=== PATIENT | male | born 1970 | race African-American/Black ===

== ENCOUNTER 2016-11-14 15:06 | Emergency (ER) | payer MEDICAID, OTHER ==
[~2016-11-14] VITALS: Ht 175.3 cm; Wt 100.0 kg
[~2016-11-14 15:06] MED LIST: HYDR-3498 PO; IBUP800T25 PO
[2016-11-14 15:10] VITALS: Ht 175.3 cm; Wt 100.0 kg
[2016-11-14] MEDS ORDERED: DIPHENHYDRAMINE 50 MG INJ IV STA (15:31)
[2016-11-14] MEDS ORDERED: METOCLOPRAMIDE 10 MG INJ IV STA (15:31)
[2016-11-14] MEDS ORDERED: SOD CHLORIDE 0.9% 1,000 ML IV STA (15:31)
[2016-11-14 15:50] LABS: ADD SCAN DIFF NO
[2016-11-14 15:52] LABS: BASOPHILS % 0.3 % (0.0-2.0); EOSINOPHILS # 0.1 10^3/ul (0.0-0.5); EOSINOPHILS % 1.1 % (0.0-7.0); HEMATOCRIT 39.7 % (42.0-52.0); HEMOGLOBIN 13.9 g/dl (14.0-18.0); LYMPHOCYTES # 2.4 10^3/ul (0.8-2.9); LYMPHOCYTES % 32.9 % (15.0-51.0); MEAN CORPUSCULAR HEMOGLOBIN 30.3 pg (29.0-33.0); MEAN CORPUSCULAR VOLUME 86.7 fl (82.0-101.0); MEAN PLATELET VOLUME 9.5 fl (7.4-10.4); MONOCYTE # 0.6 10^3/ul (0.3-0.9); MONOCYTES % 8.6 % (0.0-11.0); NEUTROPHIL # 4.2 10^3/ul (1.6-7.5); NEUTROPHILS % 56.8 % (39.0-77.0); PLATELET COUNT 258 10^3/UL (140-415); RED BLOOD COUNT 4.58 10^6/ul (4.70-6.10); RED CELL DISTRIBUTION WIDTH 12.8 % (11.5-14.5); WHITE BLOOD COUNT 7.3 10^3/ul (4.8-10.8)
[2016-11-14 16:01] LABS: INR 0.91; PROTIME 12.2 Sec (12.2-14.2)
[2016-11-14 16:02] LABS: PARTIAL THROMBOPLASTIN TIME 27.5 Sec (25.0-35.0)
[2016-11-14 16:04] LABS: POTASSIUM 3.8 mmol/L (3.5-5.1)
[2016-11-14] MEDS ORDERED: LISI2.5T59 PO (16:05)
[2016-11-14 16:07] LABS: CREATININE 1.29 mg/dl (0.61-1.24)
[2016-11-14 16:08] LABS: CALCIUM 8.6 mg/dl (8.4-10.2)
--- NOTE | 2016-11-14 16:30 | RADRPT ---
PROCEDURE: CT Head without. CLINICAL INDICATION: Migraine headache in the frontal / parietal region. TECHNIQUE: The study was performed utilizing a multi-slice, multidetector CT scanner. Direct spira l 1 mm axial sections were obtained through the head without the use of intravenous contrast materia l. 1 or more of the following dose reduction techniques were utilized: Automated exposure control, adjustment of the mA and/or kV according to patient's size, iterative reconstruction technique. Co radha and sagittal reformations were obtained. The images were reviewed on a PACS workstation. RADIATION DOSE: CTDIvol: 44.7 mGyDLP: 720.2 mGy-cm COMPARISON: No prior studies are available for comparison. FINDINGS: There is no intracranial hemorrhage, extra-axial fluid collection, mass lesion, midline shift or hyd rocephalus. The ventricles, sulci and cisterns are within normal limits. The white matter is unrem arkable. The davis-white matter differentiation is preserved. The basal cisterns are patent. The m idline structures are intact. The orbits, calvarium and extracranial soft tissues are normal in ludmila earance. The visualized paranasal sinuses, mastoid air cells and middle ear cavities are normally ae rated. IMPRESSION: 1. No acute intracranial abnormality. No intracranial hemorrhage, extra-axial fluid collection, ma ss lesion or hydrocephalous. RPTAT: HGAS .Victor Hugo Saravia MD, MD Date Time Electronically viewed and signed by .Victor Hugo Saravia MD, MD on 11/14/2016 16:29 .S/
--- NOTE | 2016-11-14 16:37 | ERD ---
ER Documentation Chief Complaint Date/Time DATE: 11/14/16 TIME: 16:36 Chief Complaint sinus gregg x 3 days, off bp meds for few days HPI This is a 46-year-old male who presents to the emergency room for evaluation of a headache. The patient states that he does have high blood pressure and is not taking his blood pressure medication in the past 3 days. The patient states that he is not taking his medication because he has been busy. He also states that he has had previous sinus infections which have progressed and needed drainage by a specialist when he was 18 years old. The patient denies any fevers or chills and came to the ER for evaluation. ROS All systems reviewed and are negative except as per history of present illness. Medications Home Meds Reported Medications Lisinopril* (Lisinopril*) 2.5 Mg Tablet, 2.5 MG PO DAILY, #30 TAB 11/14/16 Discontinued Scripts Hydrocodone Bit-Acetaminophen* (Siler*) 5-325 Mg Tab, 1 TAB PO Q6 Y for PAIN, # 20 TAB Prov:ARELI MERCADO MD 04/08/15 Ibuprofen* (Motrin*) 800 Mg Tab, 800 MG PO Q6, #20 TAB Prov:ARELI MERCADO MD 04/08/15 Allergies Allergies: Coded Allergies: No Known Allergy (Unverified , 11/14/16) PMhx/Soc History of Surgery: Yes (Eye surgery) Anesthesia Reaction: No Hx Neurological Disorder: No Hx Respiratory Disorders: No Hx Cardiac Disorders: Yes (htn) Hx Psychiatric Problems: No Hx Miscellaneous Medical Probl: Yes (gastritis) Hx Alcohol Use: No Hx Substance Use: No Hx Tobacco Use: No Smoking Status: Never smoker Physical Exam Vitals Vital Signs Date Time Temp Pulse Resp B/P Pulse Ox O2 Delivery O2 Flow Rate FiO2 11/14/16 15:10 98.1 83 20 180/122 99 Physical Exam INITIAL VITAL SIGNS: Reviewed by me GENERAL: The patient is well developed and appropriate for usual state of health in no apparent distress HEENT: Pupils equal, round, and reactive to light. EOMI. There is no scleral icterus. NECK: C-spine is soft and supple, there is no meningismus. There is no cervical lymphadenopathy. LUNGS: Clear to auscultation bilaterally. There are no rales, wheezes or rhonchi. HEART: Regular rate and rhythm, no murmurs, clicks, rubs or gallops. ABDOMEN: Soft, non-tender, non-distended. There are bowel sounds in all four quadrants. No rebound or guarding. EXTREMITIES: There is no peripheral cyanosis or edema. No focal swelling or erythema. NEUROLOGICAL: The patient moves all four extremities with 5/5 strength. Cranial nerves II - XII are intact. Normal gait. Alert and oriented SKIN: There is no apparent rash or petechiae. HEME/LYMPHATIC: There is no evidence of excessive bruising or lymphedema. PSYCHIATRIC: The patient does not appear anxious or depressed. Result Diagram: 11/14/16 1545 11/14/16 1545 Results 24 hrs Laboratory Tests Test 11/14/16 15:45 White Blood Count 7.310^3/ul Red Blood Count 4.5810^6/ul Hemoglobin 13.9g/dl Hematocrit 39.7% Mean Corpuscular Volume 86.7fl Mean Corpuscular Hemoglobin 30.3pg Mean Corpuscular Hemoglobin Concent 35.0g/dl Red Cell Distribution Width 12.8% Platelet Count 82731^3/UL Mean Platelet Volume 9.5fl Neutrophils % 56.8% Lymphocytes % 32.9% Monocytes % 8.6% Eosinophils % 1.1% Basophils % 0.3% Nucleated Red Blood Cells % 0.0/100WBC Neutrophils # 4.210^3/ul Lymphocytes # 2.410^3/ul Monocytes # 0.610^3/ul Eosinophils # 0.110^3/ul Basophils # 0.010^3/ul Nucleated Red Blood Cells # 0.010^3/ul Prothrombin Time 12.2Sec Prothrombin Time Ratio 1.0 INR International Normalized Ratio 0.91 Activated Partial Thromboplast Time 27.5Sec Sodium Level 134mmol/L Potassium Level 3.8mmol/L Chloride Level 94mmol/L Carbon Dioxide Level 35mmol/L Anion Gap 9 Blood Urea Nitrogen 13mg/dl Creatinine 1.29mg/dl Glucose Level 92mg/dl Calcium Level 8.6mg/dl Current Medications Medications (Trade) Dose Ordered Sig/Landy Route PRN Reason Start Time Stop Time Status Last Admin Dose Admin Sodium Chloride (NS) 1,000 ml @ 1,000 mls/hr Q1H STAT IV 11/14/16 15:31 11/14/16 16:30 DC 11/14/16 15:47 Metoclopramide HCl (Reglan) 10 mg ONCE STAT IV 11/14/16 15:31 11/14/16 15:32 DC 11/14/16 15:47 Diphenhydramine HCl (Benadryl) 25 mg ONCE STAT IV 11/14/16 15:31 11/14/16 15:32 DC 11/14/16 15:47 Amoxicillin/ Clavulanate Potassium (Augmentin) 875 mg ONCE ONCE PO 11/14/16 17:00 11/14/16 17:01 DC 11/14/16 16:57 Hydralazine HCl (Apresoline) 10 mg ONCE ONCE IV 11/14/16 17:00 11/14/16 17:01 DC 11/14/16 16:53 Nicardipine HCl (Cardene) 30 mg ONCE ONCE PO 11/14/16 17:30 11/14/16 17:31 Labetalol HCl (Labetalol) 10 mg ONCE ONCE IV 11/14/16 17:30 11/14/16 17:31 Procedures/MDM CT head without: 1. No acute intracranial abnormality. No intracranial hemorrhage, extra-axial fluid collection, mass lesion or hydrocephalous. This 46-year-old male presents to the emergency room for evaluation of a headache. When I evaluated this patient he was hypertensive. The patient does have a history of complicated sinus infection which required ENT drainage. The patient had lab work drawn which does not show any leukocytosis. The patient is afebrile, alert oriented to person place and time. CT the head does not reveal any abscess formation or bleeding. The patient was given hydralazine and labetalol. His blood pressure is 148/99. He was given p.o. Augmentin in the emergency room. He was also given treatment for migraine cocktail and was given Reglan, and Benadryl. The patient states his headache has improved. He will be discharged home at this time with a prescription for Augmentin, and Siler for headache. I advised him that he needs to follow-up with his primary care physician in 3 days or return to the ER immediately if his pain worsens. The patient verbalized understanding is okay with her plan of care. Departure Diagnosis: Primary Impression: Headache Additional Impressions: Normocytic anemia Renal insufficiency Uncontrolled hypertension Condition: Stable BORHANI,KOROSH DO Nov 14, 2016 16:37
[2016-11-14] MEDS ORDERED: hydrALAzine 20 MG INJ IV ONE (17:00)
[2016-11-14] MEDS ORDERED: AMOXICILLIN/CLAV 875 MG TAB PO ONE (17:00)
[2016-11-14] MEDS ORDERED: LABETALOL HCL 20MG INJ IV ONE (17:30)
[2016-11-14] MEDS ORDERED: NICARDipine HCL 30 MG CAPSULE PO ONE (17:30)
[2016-11-14 17:33] VITALS: BP 148/89; PULSE 80; RESP 18; TEMP 98.9
[2016-11-14] MEDS ORDERED: AMOX1TAB10 PO (17:34)
[2016-11-14] MEDS ORDERED: HYDR-906 PO (17:34)
== END 2016-11-14 17:45 | disposition home or self-care (01) ==
LOC: E/R 15:06
DX: R51 Headache (principal); D64.9 Anemia, unspecified; N28.9 Disorder of kidney and ureter, unspecified; I10 Essential (primary) hypertension; R07.9 Chest pain, unspecified
CPT/HCPCS: 36415; 70450; 80048; 85025; 85610; 85730; 96374; 96375; J0360; J1200; J2765; J7030; Z7502; Z7610

== ENCOUNTER 2016-11-16 09:35 | Emergency (ER) | payer OTHER ==
[~2016-11-16] VITALS: Ht 167.6 cm; Wt 110.0 kg
[~2016-11-16 09:35] MED LIST changes: +AMOX1TAB10 PO; -HYDR-3498 PO; +HYDR-906 PO; -IBUP800T25 PO; +LISI2.5T59 PO
[2016-11-16 09:38] VITALS: Ht 167.6 cm; Wt 110.0 kg
[2016-11-16] MEDS ORDERED: SOD CHLORIDE 0.9% 1,000 ML IV STA (10:03)
[2016-11-16] MEDS ORDERED: LIDOCAINE/MYLANTA 40 ML BTL PO STA (10:03)
[2016-11-16] MEDS ORDERED: FAMOTIDINE 20 MG INJ IV STA (10:03)
[2016-11-16] MEDS ORDERED: ONDANSETRON 4 MG INJ IV STA (10:03)
[2016-11-16] MEDS ORDERED: BELLADONNA/PHENOBARBITAL TAB PO STA (10:03)
[2016-11-16 10:36] LABS: ADD SCAN DIFF NO
[2016-11-16 10:38] LABS: BASOPHILS % 0.3 % (0.0-2.0); EOSINOPHILS % 0.3 % (0.0-7.0); HEMATOCRIT 41.7 % (42.0-52.0); HEMOGLOBIN 14.2 g/dl (14.0-18.0); LYMPHOCYTES % 27.1 % (15.0-51.0); MEAN CORPUSCULAR HGB CONC 34.1 g/dl (32.0-37.0); MEAN CORPUSCULAR VOLUME 88.2 fl (82.0-101.0); MEAN PLATELET VOLUME 10.1 fl (7.4-10.4); MONOCYTE # 0.5 10^3/ul (0.3-0.9); MONOCYTES % 6.6 % (0.0-11.0); NEUTROPHIL # 4.7 10^3/ul (1.6-7.5); NEUTROPHILS % 65.1 % (39.0-77.0); PLATELET COUNT 267 10^3/UL (140-415); RED BLOOD COUNT 4.73 10^6/ul (4.70-6.10); RED CELL DISTRIBUTION WIDTH 13.2 % (11.5-14.5); WHITE BLOOD COUNT 7.2 10^3/ul (4.8-10.8)
--- NOTE | 2016-11-16 10:44 | RADRPT ---
PROCEDURE: US Abdomen (right upper quadrant). CLINICAL INDICATION: Abdominal pain TECHNIQUE: Multiple real-time longitudinal and transverse images of the right upper quadrant of th e abdomen were acquired utilizing a curved array transducer. Images were reviewed on a high-resoluti on PACS workstation. COMPARISON: None FINDINGS: Increase echogenicity of the liver. No cholelithiasis. The gallbladder wall measures 1 mm. The common bile duct measures 3 mm. No pericholecystic fluid is seen. No reported sonographic Forman's sign. Right renal cyst measuring up to 3.2 cm. No right renal hydronephrosis visualized. IMPRESSION: No cholelithiasis. No sonographic evidence of acute cholecystitis. Hepatic steatosis. RPTAT: AA .Etienne Guzman MD, Date Time Electronically viewed and signed by .Etienne Guzman MD, MD on 11/16/2016 10:44 .T/
--- NOTE | 2016-11-16 10:46 | RADRPT ---
PROCEDURE: XR Chest. CLINICAL INDICATION: Abdominal pain TECHNIQUE: Chest AP portable. COMPARISON: No comparison available. FINDINGS: The mediastinal structures are unremarkable. The heart is normal in size and configuration. The pu lmonary vascularity is normal. The lung torres are unremarkable. No consolidation is identified. The pleural spaces are unremarkable. The axial skeleton is unremarkable. IMPRESSION: No active intrathoracic disease. RPTAT: HGDB .Asher Johnson MD, MD Date Time Electronically viewed and signed by .Asher Johnson MD, on 11/16/2016 10:45 .B/
[2016-11-16 11:15] LABS: ALBUMIN 4.3 g/dl (3.3-4.9)
[2016-11-16 11:16] LABS: POTASSIUM 3.7 mmol/L (3.5-5.1)
[2016-11-16 11:18] LABS: BILIRUBIN,INDIRECT 0.3 mg/dl (0-1.1); BILIRUBIN,TOTAL 0.3 mg/dl (0.2-1.3); CREATININE 1.28 mg/dl (0.61-1.24)
[2016-11-16 11:19] LABS: ALBUMIN/GLOBULIN RATIO 1.13; CALCIUM 9.2 mg/dl (8.4-10.2); TOTAL PROTEIN 8.1 g/dl (6.1-8.1)
[2016-11-16] MEDS ORDERED: ONDA4TAB8 PO (12:22)
[2016-11-16] MEDS ORDERED: LOPE2CAP PO (12:23)
[2016-11-16] MEDS ORDERED: SUCR1TAB56 PO (12:23)
[2016-11-16] MEDS ORDERED: PSEU120T51 PO (12:24)
[2016-11-16] MEDS ORDERED: HYDROCODONE/APAP (5/325) TAB PO ONE (12:30)
[2016-11-16] MEDS ORDERED: FAMO-18 PO (12:35)
[2016-11-16] MEDS ORDERED: TRAM50TA2 PO (12:36)
--- NOTE | 2016-11-16 12:49 | ERD ---
ER Documentation Chief Complaint Date/Time DATE: 11/16/16 TIME: 12:38 Chief Complaint NAUSEA,VOMITING,SINUS HEADACHE HPI This is a 46-year-old male presents to the ER with nausea vomiting and diarrhea that started yesterday. Patient is complaining of burning epigastric pain that radiates up and down his stomach and into his chest. Vomiting is nonbilious nonbloody. Diarrhea does not have any blood in it. Patient has a past medical history of acid reflux. Patient denies any fevers or chills. Patient was recently seen here for a sinus infection 2 days ago and he is currently taking Augmentin for a sinus infection. Patient states that he has felt better however does get intermittent facial pain that is described as pressure to his forehead. Patient denies any nasal discharge. He denies any facial swelling. Patient denies any vision changes. He denies any urinary frequency or dysuria. He denies any flank pain. ROS 12 point review of systems was done, all negative except per HPI. Medications Home Meds Active Scripts Tramadol HCl (Tramadol HCl) 50 Mg Tablet, 50 MG PO Q4 Y for PAIN, #10 TAB Prov:CELIA LEZAMA 11/16/16 Famotidine* (Pepcid*) 20 Mg Tablet, 20 MG PO BID for 4 Days, TAB Prov:CELIA LEZAMA 11/16/16 Pseudoephedrine Hcl (Sudafed 12 Hour) 120 Mg Tablet.sa, 120 MG PO BID for 7 Days Prov:CELIA LEZAMA 11/16/16 Sucralfate* (Carafate*) 1 Gm Tab, 1 GM PO QID for 7 Days, TAB Prov:CELIA LEZAMA 11/16/16 Loperamide Hcl* (Imodium*) 2 Mg Capsule, 2 MG PO .WITH EACH DIARRHEA Y for DIARRHEA for 3 Days, CAP MAX 16 mg/day Prov:CELIA LEZAMA 11/16/16 Ondansetron Hcl* (Zofran*) 4 Mg Tablet, 4 MG PO Q6H for NAUSEA AND/OR VOMITING, #30 TAB Prov:CELIA LEZAMA 11/16/16 Hydrocodone/Acetaminophen ([place] 5-325 Tablet) 1 Each Tablet, 1 TAB PO Q6H Y for PAIN, #7 TAB Prov:SWAPNIL MURGUIA DO 11/14/16 Amoxicillin/Potassium Clav (Amox-Clav 875-125 mg Tablet) 875-125 mg Tab, 1 TAB PO BID for 10 Days, #20 TAB Prov:SWAPNIL MURGUIA DO 11/14/16 Reported Medications Lisinopril* (Lisinopril*) 2.5 Mg Tablet, 2.5 MG PO DAILY, #30 TAB 11/14/16 Discontinued Scripts Hydrocodone Bit-Acetaminophen* ([place]*) 5-325 Mg Tab, 1 TAB PO Q6 Y for PAIN, # 20 TAB Prov:ARELI MERCADO MD 04/08/15 Ibuprofen* (Motrin*) 800 Mg Tab, 800 MG PO Q6, #20 TAB Prov:ARELI MERCADO MD 04/08/15 Allergies Allergies: Coded Allergies: No Known Allergy (Unverified , 11/14/16) PMhx/Soc History of Surgery: Yes (Eye surgery) Anesthesia Reaction: No Hx Neurological Disorder: No Hx Respiratory Disorders: No Hx Cardiac Disorders: Yes (htn) Hx Psychiatric Problems: No Hx Miscellaneous Medical Probl: Yes (gastritis) Hx Alcohol Use: No Hx Substance Use: No Hx Tobacco Use: No Physical Exam Vitals Vital Signs Date Time Temp Pulse Resp B/P Pulse Ox O2 Delivery O2 Flow Rate FiO2 11/16/16 09:38 98.3 99 18 172/89 98 Physical Exam GENERAL: The patient is well developed and appropriate for usual state of health , in no apparent distress. HEENT: Atraumatic. No facial swelling. Conjunctivae are pink. Pupils equal, round, and reactive to light. Extraocular muscles are grossly intact. Patient is tender to palpation to the frontal sinus. Left greater than right. CHEST: Clear to auscultation bilaterally. There are no rales, wheezes or rhonchi. HEART: Regular rate and rhythm. No murmurs, clicks, rubs or gallops. ABDOMEN: Soft and nondistended, tender to palpation in the epigastric area. Good bowel sounds. No rebound or guarding. No gross peritonitis. No gross organomegaly or masses. No Forman sign or McBurney point tenderness. BACK: No midline or flank tenderness. EXTREMITIES: . Full range of motion. Grossly neurovascularly intact. NEURO: Alert and oriented. Result Diagram: 11/16/16 1021 4/2/17 1021 Results 24 hrs Laboratory Tests Test 11/16/16 10:21 White Blood Count 7.210^3/ul Red Blood Count 4.7310^6/ul Hemoglobin 14.2g/dl Hematocrit 41.7% Mean Corpuscular Volume 88.2fl Mean Corpuscular Hemoglobin 30.0pg Mean Corpuscular Hemoglobin Concent 34.1g/dl Red Cell Distribution Width 13.2% Platelet Count 54626^3/UL Mean Platelet Volume 10.1fl Neutrophils % 65.1% Lymphocytes % 27.1% Monocytes % 6.6% Eosinophils % 0.3% Basophils % 0.3% Nucleated Red Blood Cells % 0.0/100WBC Neutrophils # 4.710^3/ul Lymphocytes # 2.010^3/ul Monocytes # 0.510^3/ul Eosinophils # 0.010^3/ul Basophils # 0.010^3/ul Nucleated Red Blood Cells # 0.010^3/ul Sodium Level 138mmol/L Potassium Level 3.7mmol/L Chloride Level 98mmol/L Carbon Dioxide Level 28mmol/L Anion Gap 16 Blood Urea Nitrogen 17mg/dl Creatinine 1.28mg/dl Glucose Level 123mg/dl Calcium Level 9.2mg/dl Total Bilirubin 0.3mg/dl Direct Bilirubin 0.00mg/dl Indirect Bilirubin 0.3mg/dl Aspartate Amino Transf (AST/SGOT) 47IU/L Alanine Aminotransferase (ALT/SGPT) 42IU/L Alkaline Phosphatase 61IU/L Total Protein 8.1g/dl Albumin 4.3g/dl Globulin 3.80g/dl Albumin/Globulin Ratio 1.13 Lipase 54U/L Current Medications Medications (Trade) Dose Ordered Sig/Landy Route PRN Reason Start Time Stop Time Status Last Admin Dose Admin Sodium Chloride (NS) 1,000 ml @ 1,000 mls/hr Q1H STAT IV 11/16/16 10:03 11/16/16 11:02 DC 11/16/16 10:38 Ondansetron HCl (Zofran Inj) 4 mg ONCE STAT IV 11/16/16 10:03 11/16/16 10:54 DC 11/16/16 10:18 Famotidine (Pepcid Iv) 20 mg ONCE STAT IV 11/16/16 10:03 11/16/16 10:54 DC 11/16/16 10:18 Miscellaneous Medication (Gi Cocktail (2)) 40 ml ONCE STAT PO 11/16/16 10:03 11/16/16 10:54 DC 11/16/16 10:20 Belladonna/ Phenobarbital () 2 tab ONCE STAT PO 11/16/16 10:03 11/16/16 10:54 DC 11/16/16 10:19 Acetaminophen/ Hydrocodone Bitart ([place] (5/325)) 1 tab ONCE ONCE PO 11/16/16 12:30 11/16/16 12:31 DC 11/16/16 12:17 [place] [id number] Radiology Main Line: [phone] DIAGNOSTIC IMAGING REPORT Patient: PETERSON MAC : 1970 Age: 46 Sex: M MR #: [id number] DOS: 11/16/16 1003 Ordering MD: CELIA LEZAMA PA-Chente Location: [facility] Room/Bed: PROCEDURE: XR Chest. CLINICAL INDICATION: Abdominal pain TECHNIQUE: Chest AP portable. COMPARISON: No comparison available. FINDINGS: The mediastinal structures are unremarkable. The heart is normal in size and configuration. The pulmonary vascularity is normal. The lung torres are unremarkable. No consolidation is identified. The pleural spaces are unremarkable. The axial skeleton is unremarkable. IMPRESSION: No active intrathoracic disease. RPTAT: HGDB .Asher Jonhson MD, Date Time Electronically viewed and signed by .Asher Johnson MD, MD on 11/16/2016 10:45 .B/ CC: CELIA LEZAMA [place] [id number] Radiology Main Line: [phone] DIAGNOSTIC IMAGING REPORT Patient: PETERSON MAC : 1970 Age: 46 Sex: M MR #: [id number] DOS: 11/16/16 1003 Ordering MD: CELIA LEZAMA PA-Chente Location: [facility] Room/Bed: PROCEDURE: US Abdomen (right upper quadrant). CLINICAL INDICATION: Abdominal pain TECHNIQUE: Multiple real-time longitudinal and transverse images of the right upper quadrant of the abdomen were acquired utilizing a curved array transducer. Images were reviewed on a high-resolution PACS workstation. COMPARISON: None FINDINGS: Increase echogenicity of the liver. No cholelithiasis. The gallbladder wall measures 1 mm. The common bile duct measures 3 mm. No pericholecystic fluid is seen. No reported sonographic Forman's sign. Right renal cyst measuring up to 3.2 cm. No right renal hydronephrosis visualized. IMPRESSION: No cholelithiasis. No sonographic evidence of acute cholecystitis. Hepatic steatosis. RPTAT: AA .Etienne Guzman MD, Date Time Electronically viewed and signed by .Etienne Guzman MD, on 11/16/2016 10:44 .T/ CC: CELIA LEZAMA Procedures/MDM EKG 88bpm no ST elevation no t -wave inversion. Differential Diagnosis: GERD, gastritis, peptic ulcer disease, pancreatitis, cholecystitis, choledocholithiasis, biliary colic, cholangitis, Plby-Kdnc-Xsmibs , ACS/MA, Pnuemonia. Patient's nausea vomiting diarrhea is likely viral in etiology. Patient does have a history of GERD which is likely being aggravated by his current virus. There is no evidence of gallbladder disease, pancreatitis. Patient was treated here in the ER and did not have any episodes of vomiting. There is no evidence of electrolyte imbalances to suggest severe dehydration. In regards to patient's sinus headache, he is currently taking antibiotics for sinusitis. Patient has only been taking antibiotics for 2 days , he is afebrile and well-appearing.. Patient will be sent home with Zofran, Imodium, Carafate, famotidine, Sudafed and tramadol. Patient was told to closely monitor his symptoms this sinusitis symptoms do not get better within the next 24-48 hours he is to return to ER immediately. At this time I do not believe patient has acute abdomen his abdominal examination is completely benign. Patient is to follow-up with his primary care doctor within 1-2 days return to ER sooner if symptoms worsen. Medical decision making shared with patient Departure Diagnosis: Primary Impression: Nausea vomiting and diarrhea Condition: Stable Patient Instructions: Vomiting And Diarrhea, Nonspecific (Adult) Additional Instructions: Call your primary care doctor TOMORROW for an appointment during the next 1-2 days.See the doctor sooner or return here if your condition worsens before your appointment time. CELIA LEZAMA Nov 16, 2016 12:48
[2016-11-16 13:07] VITALS: BP 160/100; PULSE 87; RESP 20; TEMP 98.3
== END 2016-11-16 13:09 | disposition home or self-care (01) ==
LOC: FTE 09:35
DX: R11.2 Nausea with vomiting, unspecified (principal); R19.7 Diarrhea, unspecified; I10 Essential (primary) hypertension
CPT/HCPCS: 36415; 71010; 76705; 80053; 83690; 85025; 93005; 96374; 96375; J2405; J7030; Z7502; Z7610

== ENCOUNTER 2019-02-15 11:52 | Emergency (ER) | payer OTHER ==
[~2019-02-15] VITALS: Ht 177.8 cm; Wt 96.5 kg
[~2019-02-15 11:52] MED LIST changes: +FAMO-96 PO; +HYDR-4011 PO; -HYDR-906 PO; +LOPE2CAP PO; +ONDA4TAB8 PO; +PSEU120T12 PO; +SUCR1TAB56 PO; +TRAM50TA2 PO
[2019-02-15 11:54] VITALS: BP 165/98; PULSE 96; RESP 15; Ht 177.8 cm; Wt 96.5 kg
--- NOTE | 2019-02-15 12:27 | ERD ---
ER Documentation Chief Complaint Chief Complaint Pt drove self to the ED with LAC to R hand. HPI 48-year-old male presents for evaluation of laceration to the right hand. This happened earlier today, he was hanging a picture frame which fell on his hand. Patient is very anxious from recent social stressors, he has no suicidal or homicidal ideations. He had no other injuries, ROS All systems reviewed and are negative except as per history of present illness. Medications Home Meds Active Scripts Tramadol HCl (Tramadol HCl) 50 Mg Tablet, 50 MG PO Q4 PRN for PAIN, #10 TAB Prov:CELIA LEZAMA 11/16/16 Famotidine* (Pepcid*) 20 Mg Tablet, 20 MG PO BID for 4 Days, TAB Prov:CELIA LEZAMA 11/16/16 Pseudoephedrine Hcl (Sudafed 12 Hour) 120 Mg Tablet.sa, 120 MG PO BID for 7 Days Prov:CELIA LEZAMA 11/16/16 Sucralfate* (Carafate*) 1 Gm Tab, 1 GM PO QID for 7 Days, TAB Prov:CELIA LEZAMA 11/16/16 Loperamide Hcl* (Imodium*) 2 Mg Capsule, 2 MG PO .WITH EACH DIARRHEA PRN for DIARRHEA for 3 Days, CAP MAX 16 mg/day Prov:CELIA LEZAMA 11/16/16 Ondansetron Hcl* (Zofran*) 4 Mg Tablet, 4 MG PO Q6H for NAUSEA AND/OR VOMITING, #30 TAB Prov:CELIA LEZAMA 11/16/16 Hydrocodone/Acetaminophen ([place] 5-325 Tablet) 1 Each Tablet, 1 TAB PO Q6H PRN for PAIN, #7 TAB Prov:SWAPNIL MURGUIA DO 11/14/16 Amoxicillin/Potassium Clav (Amox-Clav 875-125 mg Tablet) 875-125 mg Tab, 1 TAB PO BID for 10 Days, #20 TAB Prov:SWAPNIL MURGUIA DO 11/14/16 Reported Medications Lisinopril* (Lisinopril*) 2.5 Mg Tablet, 2.5 MG PO DAILY, #30 TAB 11/14/16 Allergies Allergies: Coded Allergies: No Known Allergy (Unverified , 11/14/16) PMhx/Soc History of Surgery: Yes (Eye surgery) Anesthesia Reaction: No Hx Neurological Disorder: No Hx Respiratory Disorders: No Hx Cardiac Disorders: Yes (htn) Hx Psychiatric Problems: No Hx Miscellaneous Medical Probl: Yes (gastritis) Hx Alcohol Use: No Hx Substance Use: No Hx Tobacco Use: No Physical Exam Vitals Vital Signs Date Temp Pulse Resp B/P (MAP) Pulse Ox O2 O2 Flow FiO2 Time Delivery Rate 02/15/19 99.1 96 15 165/98 98 11:54 (120) Physical Exam Const: Well-appearing nontoxic, anxious Head: Atraumatic Eyes: Normal conjunctiva ENT: Normal external ears, nose and mouth. Neck: Resp: Normal respiratory effort Cardio: Abd: Skin: Back: Ext: Hand -right: Skin: 3 cm laceration noted to the palm Compartments: Soft Sensation: Intact shoulder/pinky/middle finger/thumb web space Bones: Nontender Snuffbox: Nontender Joints: No effusion Wrist: Flex/Ext: Normal Uln/Radial deviation: Normal Pron/Supination Normal Finger: Flex/Ext: Normal Add/abd: Normal Thumb: Flex/Ext: Normal Opposition: Normal Thumbs up: Normal Neur: Awake and alert Psych: Normal mood and affect Results 24 hrs Current Medications Medications Dose Sig/Landy Start Time Status Last (Trade) Ordered Route PRN Stop Time Admin Dose Reason Admin Diphtheria/ 0.5 ml ONCE ONCE 02/15/19 Cancel Tetanus/Acell IM* 12:30 02/15/19 Pertussis 12:31 (Adacel) Lidocaine 20 ml ONCE ONCE 02/15/19 DC (Xylocaine INJ 12:30 02/15/19 1% (Mdv) 20 12:31 ml) Procedures/MDM Is a 48-year-old male who presents for evaluation of hand laceration, on exam patient had no neurovascular deficits, his laceration was repaired without complication. Recommend wound check follow-up in 48 hours, his tetanus has been updated within the last year,, strict return cautions were given for any weakness, neurovascular deficits, or any other concerns. Also recommended suture removal within 7 days. Laceration Repair by me: Anesthesia: 1% lidocaine [without epinephrine locally Location: Right palm Tendon/Joint/Nerves: No injury Foreign body: None detected after copious irrigation and exploration Technique: Simple Interrupted Sutures. 4-0 Prolene, 4 sutures Complexity: No subcutaneous sutures/mucosal repair/edge excision Post Closure Length: 3 cm Patient's bleeding was easily controlled in the department and there is no indication of anemia. No evidence of compartment syndrome, neurologic injury, vascular injury, open joint, tendon laceration, or foreign body. Patient is appropriate for outpatient follow up. 48 hour wound check. Scar minimization instructions given. Departure Diagnosis: Primary Impression: Laceration Condition: Stable Patient Instructions: Laceration, Hand Referrals: [facility] ERIKA GONSALES MD Feb 15, 2019 12:27
[2019-02-15] MEDS ORDERED: DIPHTH/TET/ACEL PERTUSS (ADULT) 0.5 ML VIAL IM* ONE (12:30)
[2019-02-15] MEDS ORDERED: LIDOCAINE 1% (MDV) 20 ML INJ INJ ONE (12:30)
[2019-02-15] MEDS ORDERED: IBUPROFEN 600 MG TAB PO ONE (13:30)
== END 2019-02-15 13:38 | disposition home or self-care (01) ==
LOC: FTE 11:52
DX: S61.411A Laceration without foreign body of right hand, initial encounter (principal); I10 Essential (primary) hypertension; W20.8XXA Other cause of strike by thrown, projected or falling object, initial encounter; Y92.9 Unspecified place or not applicable
CPT/HCPCS: 12002; 73130; Z7502; Z7610